=== PATIENT | female | born 1965 | race Hispanic/Latino ===

== ENCOUNTER 2022-03-14 20:30 | Inpatient (IN) | payer OTHER ==
[2022-03-14] MEDS ORDERED: NA CHLORIDE 0.9% 2,000 ML ONE (21:26)
[2022-03-14 21:32] LABS: Absolute Lymphocytes (CBC) 0.7 K/uL (0.7-4.9); Hematocrit 42.1 % (36.0-45.0); Lymphocytes % 4.7 % (15.3-44.8); MPV 8.5 fL (7.6-11.3); RBC Red Blood Cell Count 4.99 M/uL (3.86-4.86)
[2022-03-14 21:35] LABS: Protime INR 1.22
[2022-03-14 21:52] LABS: Albumin 4.1 g/dL (3.4-5.0); Magnesium 1.9 mg/dL (1.8-2.4); Potassium 3.1 mmol/L (3.5-5.1)
[2022-03-14 21:55] LABS: Urine Amorphous Sediment 1+ /HPF (NONE SEEN); Urine Bacteria 20-50 /HPF (<20); Urine Mucus 2+ /HPF (NONE SEEN); Urine RBC <5 /HPF (NONE SEEN)
[2022-03-14 22:00] LABS: Bilirubin Direct 0.3 mg/dL (0-0.2); Bilirubin Total 0.9 mg/dL (0.2-1.0); Protein, Total 6.9 g/dL (6.4-8.2); Troponin High Sensitivity 6.3 pg/mL (<58.9)
[2022-03-14 22:06] LABS: SARS-COV-2 RT PCR NEGATIVE (NEGATIVE)
--- NOTE | 2022-03-14 22:17 | RAD REPORT ---
EXAM DESCRIPTION: Kristopher Single View03/14/2022 10:10 pm CLINICAL HISTORY: Chest pain COMPARISON: none FINDINGS: The lungs appear clear of acute infiltrate. The heart is normal size IMPRESSION: No acute abnormalities displayed
[2022-03-14] MEDS ORDERED: NA CHLORIDE 0.9% 50 ML ONE (22:56)
[2022-03-14] MEDS ORDERED: KCL 20 MEQ/100 mL IVPB 100 ML IV ONE (22:56)
[2022-03-14] MEDS ORDERED: CEFTRIAXONE 1000 MG/VIAL ONE (22:56)
[2022-03-14] MEDS ORDERED: ACETAMINOPHEN 500 MG TAB ONE (22:56)
--- NOTE | 2022-03-15 01:12 | EDPHYS ---
Physician Documentation [facility] Name: Radha Welch Age: 56 yrs Sex: Female : 1965 Arrival Date: 03/14/2022 Time: 20:34 Bed 8 Private MD: ED Physician Dillon Purdy HPI: 03/14 21:10 This 56 yrs old Female presents to ER via Wheelchair with complaints of Fever, cp Nausea/Vomiting, Dizziness. 21:10 The patient reports fever, with an emergency department temperature of 100.9 degrees cp Fahrenheit. Onset: The symptoms/episode began/occurred today. 21:10 Associated signs and symptoms: Pertinent positives: abdominal pain, chest pain, cp headache, nausea, vomiting, dizziness, Pertinent negatives: altered mental status, cough, diarrhea. 21:10 Severity of symptoms: in the emergency department the symptoms are unchanged despite cp home interventions. 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 - Social history:: Smoking status: Patient denies any tobacco usage or history of. ROS: 21:15 Constitutional: Positive for fever. cp 21:15 Eyes: Negative for injury, pain, redness, and discharge. cp 21:15 ENT: Negative for drainage from ear(s), ear pain, sore throat, difficulty swallowing, difficulty handling secretions. 21:15 Cardiovascular: Positive for chest pain. 21:15 Respiratory: Negative for cough, shortness of breath, wheezing. 21:15 Abdomen/GI: Positive for nausea and vomiting, Negative for diarrhea, constipation, hematemesis. 21:15 Skin: Negative for rash. 21:15 Neuro: Positive for dizziness, headache, Negative for altered mental status, weakness. 21:15 All other systems are negative. Exam: 21:20 Constitutional: The patient appears in no acute distress, alert, awake, cp non-diaphoretic, non-toxic, well developed, well nourished, febrile, uncomfortable. 21:20 Head/Face: Normocephalic, atraumatic. cp 21:20 Eyes: Periorbital structures: appear normal, Conjunctiva: normal, no exudate, no injection, Sclera: no appreciated abnormality, Lids and lashes: appear normal, bilaterally. 21:20 ENT: External ear(s): are unremarkable, Nose: is normal, Mouth: Lips: moist, Oral mucosa: pink and intact, moist, Posterior pharynx: Airway: no evidence of obstruction, patent. 21:20 Neck: ROM/movement: is normal, is supple, without pain, no range of motions limitations, no meningismus. 21:20 Chest/axilla: Inspection: normal, Palpation: is normal, no crepitus, no tenderness. 21:20 Cardiovascular: Rate: tachycardic, Rhythm: regular, Edema: is not appreciated, JVD: is not appreciated. 21:20 Respiratory: the patient does not display signs of respiratory distress, Respirations: normal, no use of accessory muscles, no retractions, labored breathing, is not present, Breath sounds: are clear throughout, no decreased breath sounds, no stridor, no wheezing. 21:20 Abdomen/GI: Inspection: abdomen appears normal, Bowel sounds: active, all quadrants, Palpation: soft, in all quadrants, mild abdominal tenderness, in the right upper quadrant and left upper quadrant, rebound tenderness, is not appreciated, involuntary guarding, is not appreciated. 21:20 Back: CVA tenderness, is absent. 21:20 Skin: cellulitis, is not appreciated, no rash present. 21:20 Neuro: Orientation: to person, place \\T\\ time. Mentation: is normal, Motor: moves all fours, strength is normal, Sensation: is normal. 21:23 ECG was reviewed by the Attending Physician. cp Vital Signs: 21:00 BP 114 / 63; Pulse 110; Resp 20; Temp 100.9; Pulse Ox 97% on R/A; Weight 72.57 kg (R); tw5 Height 5 ft. 0 in. (152.40 cm); Pain 5/10; 21:07 BP 119 / 75; Pulse 114; Resp 12; Pulse Ox 100% ; tw5 22:50 BP 101 / 65; Pulse 108; Resp 16; Temp 103(O); Pulse Ox 100% on R/A; sm5 22:59 BP 101 / 65; Pulse 106; Resp 20; Pulse Ox 100% on R/A; tw5 03/15 00:17 BP 104 / 68; Pulse 98; Resp 22; Temp 101.8(O); Pulse Ox 96% on R/A; tw5 01:15 BP 118 / 98; Pulse 84; Resp 17; Pulse Ox 98% on R/A; sm5 02:04 BP 97 / 60; Pulse 81; Resp 18; Temp 98.5(O); Pulse Ox 99% on R/A; tw5 03:47 BP 97 / 60; tw5 03/14 21:00 Body Mass Index 31.25 (72.57 kg, 152.40 cm) tw5 MDM: 03/14 20:56 Patient medically screened. cp 03/15 00:00 Post IV fluid administration reassessment for Sepsis: Client prescribed 30 mL/kg IVF. cp Focused Assessment performed: March 15, 2022 at 00:00 Heart: Regular rate/rhythm noted. Tachycardia noted. Lungs: Noted to be clear bilaterally. Current vital signs reviewed: Yes. Neuro: no change Respiratory: no change. 00:50 Transition of care: After a detail discussion of the patient's case, care is cp transferred to Yoan Copeland MD. 01:09 Differential diagnosis: viral Infection, bacterial infection, UTI, gastroenteritis. mh7 Data reviewed: vital signs, nurses notes, lab test result(s), CBC, electrolytes, urinalysis, radiologic studies, CT scan. Data interpreted: Pulse oximetry: on room air is 96 %. Interpretation: normal. Counseling: I had a detailed discussion with the patient and/or guardian regarding: the historical points, exam findings, and any diagnostic results supporting the discharge/admit diagnosis, lab results, radiology results, the need for further work-up and treatment in the hospital. Response to treatment: the patient's symptoms have mildly improved after treatment. 03/14 21:09 Order name: Basic Metabolic Panel; Complete Time: 22:25 03/14 22:25 Interpretation: Normal except: K 3.1; GLUC 129; CRE 1.38; GFR 40. 03/14 21:09 Order name: CBC with Diff; Complete Time: 22:25 cp 03/14 22:25 Interpretation: Normal except: WBC 13.8; RBC 4.99; RDW 16.5; LINDA% 92.0; LYM% 4.7; MN% cp 3.1; NEUT A 12.7. 05/ 21:09 Order name: LFT's; Complete Time: 22:25 cp 05/06 22:25 Interpretation: Normal except: ALK 144; BILID 0.3. cp 05/06 21:09 Order name: Magnesium; Complete Time: 22:25 cp 05/06 21:09 Order name: NT PRO-BNP; Complete Time: 22:25 cp 05/06 21:09 Order name: PT-INR; Complete Time: 22:25 cp 05/06 21:09 Order name: Troponin HS; Complete Time: 22:25 cp 05/06 21:09 Order name: Blood Culture Adult (2) cp 05/06 21:09 Order name: Urine Microscopic Only; Complete Time: 22:25 cp 05/06 22:26 Interpretation: Normal except: UWBC 5-10; UBACT 20-50; SQEPI 10-20. cp 05/06 21:09 Order name: Lactate; Complete Time: 22:25 cp 05/06 22:26 Interpretation: Abnormal: LAC 2.5. cp 05/06 21:09 Order name: Procalcitonin; Complete Time: 23:08 cp 05/06 23:08 Interpretation: Reviewed. cp 05/ 21:11 Order name: COVID-19/FLU A+B (Document "Date of Onset" if Symptomatic); Complete Time: cp 22:25 /06 21:58 Order name: Urine Culture EDGA / 23:46 Order name: Lactate: 2 hr repeat; Complete Time: 00:50 cp 05/06 21:09 Order name: XRAY Chest (1 view); Complete Time: 22:25 cp 05/06 21:09 Order name: EKG; Complete Time: 21:10 cp 05/06 21:09 Order name: Cardiac monitoring; Complete Time: 21:25 cp 05/06 21:09 Order name: EKG - Nurse/Tech; Complete Time: 21:25 cp 05/06 21:09 Order name: IV Saline Lock; Complete Time: 21:25 cp 05/06 21:09 Order name: Labs collected and sent; Complete Time: 21:24 cp 05/ 22:28 Order name: CT Head Brain wo Cont cp / 22:28 Order name: CT Abd/Pelvis - IV Contrast Only cp 05/ 11:33 Order name: Gram Stain--Aerobic Bottle EDMS 03/14 21:09 Order name: O2 Per Protocol; Complete Time: 21:24 cp 03/14 21:09 Order name: O2 Sat Monitoring; Complete Time: 21:24 cp EC/06 21:23 Rate is 107 beats/min. Rhythm is regular. DC interval is normal. QRS interval is cp normal. QT interval is normal. T waves are Inverted in lead aVL. Interpreted by me. Reviewed by me. Administered Medications: 21:25 Drug: NS 0.9% (30 ml/kg) 30 ml/kg Route: IV; Rate: bolus; Site: right antecubital; tw5 03/15 03:47 Follow up: BP 97 / 60; Response: No adverse reaction; IV Status: Completed infusion; IV tw5 Intake: 2100ml 03/14 22:58 Drug: Tylenol 1000 mg Route: PO; tw5 03/15 00:19 Follow up: Response: No adverse reaction; Temperature is increased tw5 03/14 22:59 Drug: Rocephin - (cefTRIAXone) 1 grams Route: IVPB; Infused Over: 30 mins; Site: right tw5 antecubital; 03/15 00:19 Follow up: Response: No adverse reaction; IV Status: Completed infusion; IV Intake: [id number] 00:19 Drug: Potassium Chloride 20 mEq Route: IV; Rate: calculated rate; Site: right tw5 antecubital; 01:42 Follow up: Response: No adverse reaction; IV Status: Completed infusion; IV Intake: tw5 100ml 01:47 Drug: Flagyl (metroNIDAZOLE) 500 mg Volume: 100 ml; Route: IVPB; Rate: 200 ml/hr; tw5 Infused Over: 30 mins; Site: right antecubital; 03:45 Follow up: Response: No adverse reaction; IV Status: Completed infusion; IV Intake: tw5 100ml 03:46 Drug: Cipro (ciprofloxacin) 400 mg Volume: 200 ml; Route: IVPB; Infused Over: 60 mins; tw5 Site: right antecubital; 04:12 Drug: NS 0.9% 1000 ml Route: IV; Rate: 1 bolus; Site: right antecubital; tw5 Disposition Summary: 03/15/22 01:11 Hospitalization Ordered Hospitalization Status: Inpatient Admission [facility] Provider: Dakotah Troncoso7 Condition: Stable mh7 Problem: new mh7 Symptoms: have improved mh7 Bed/Room Type: Standard [facility] Location: Telemetry/MedSurg (Inpatient)(03/15/22 12:39) dw Room Assignment: 225(03/15/22 12:39) dw Diagnosis - Sepsis, unspecified organism mh7 - Colitis mh7 Forms: - Medication Reconciliation Form mh7 - SBAR form mh7 Addendum: 03/23/2022 19:16 Co-signature as Attending Physician, Yoan Copeland MD. [facility] Signatures: Dispatcher [employer] EDMS Adele Dickerson RN RN mw Woody, Diana RN RN dw Haja Magallanes, CARE MANAGER CNA-C CARE MANAGER CNA-Cla1 Dillon Correa PA PA cp Holmes, Maurice, MD MD [facility] Madison Esteban [facility] Corrections: (The following items were deleted from the chart) 03/14 21:22 21:09 Urine Test ordered. cp tw5 21:23 21:09 Urine Dipstick-Ancillary ordered. cp tw5 03/15 01:19 01:11 Telemetry/MedSurg (Inpatient) 7 mw 01:19 01:11 mh7 mw 12:39 01:19 [facility] ER HOLD mw dw 12:39 01:19 ERHOLD- mw dw
--- NOTE | 2022-03-15 01:12 | ER ---
Nurse's Notes [facility] Name: Radha Welch Age: 56 yrs Sex: Female : 1965 Arrival Date: 03/14/2022 Time: 20:34 Bed 8 Private MD: Diagnosis: Sepsis, unspecified organism;Colitis Presentation: 03/14 20:59 Chief complaint: Granddaughter reports " She started feeling dizzy, really hot and the tw5 she started throwing up.". Chief complaint: Patient states: She is reporting weakness, and she believes that she had a fever at home. Onset of symptoms was March 14, 2022 at 18:00. 21:00 Coronavirus screen: Vaccine status: Patient reports receiving the 2nd dose of the covid tw5 vaccine. [employer]. Ebola Screen: Patient negative for fever greater than or equal to 101.5 degrees Fahrenheit, and additional compatible Ebola Virus Disease symptoms Patient denies exposure to infectious person. Patient denies travel to an Ebola-affected area in the 21 days before illness onset. Initial Sepsis Screen: Does the patient meet any 2 criteria? Temp <36.0*C (96.8*F)) or > 38.3*C (100.9*F). HR > 90 bpm. Does the patient have a suspected source of infection? Yes: Acute abdominal pain If YES to both, name of provider notified: Dillon ABDULLAHI Risk Assessment: Do you want to hurt yourself or someone else? Patient reports no desire to harm self or others. 21:00 Method Of Arrival: Wheelchair tw5 21:00 Acuity: JOHN PAUL 2 tw5 Triage Assessment: 21:03 General: Appears uncomfortable, Behavior is calm, cooperative, appropriate for age. tw5 Pain: Complains of pain in face and abdomen Pain currently is 5 out of 10 on a pain scale. GI: Reports nausea, vomiting. 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 - Social history:: Smoking status: Patient denies any tobacco usage or history of. Screenin:07 Abuse screen: Denies threats or abuse. Denies injuries from another. Nutritional tw5 screening: No deficits noted. Tuberculosis screening: No symptoms or risk factors identified. Fall Risk No fall in past 12 months (0 pts). Assessment: 21:07 General: Appears in no apparent distress. Behavior is calm, cooperative, appropriate tw5 for age. Pain: Pain currently is 5 out of 10 on a pain scale. Cardiovascular: Rhythm is sinus tachycardia. Respiratory: No deficits noted. GI: Abdomen is obese. 22:59 Reassessment: Patient appears in no apparent distress at this time. No changes from tw5 previously documented assessment. Patient and/or family updated on plan of care and expected duration. Pain level reassessed. Patient is alert, oriented x 3, equal unlabored respirations, skin warm/dry/pink. 03/15 00:17 Reassessment: Patient appears in no apparent distress at this time. No changes from tw5 previously documented assessment. Patient and/or family updated on plan of care and expected duration. Pain level reassessed. Vital Signs: 03/14 21:00 BP 114 / 63; Pulse 110; Resp 20; Temp 100.9; Pulse Ox 97% on R/A; Weight 72.57 kg (R); tw5 Height 5 ft. 0 in. (152.40 cm); Pain 5/10; 21:07 BP 119 / 75; Pulse 114; Resp 12; Pulse Ox 100% ; tw5 22:50 BP 101 / 65; Pulse 108; Resp 16; Temp 103(O); Pulse Ox 100% on R/A; sm5 22:59 BP 101 / 65; Pulse 106; Resp 20; Pulse Ox 100% on R/A; tw5 0507 00:17 BP 104 / 68; Pulse 98; Resp 22; Temp 101.8(O); Pulse Ox 96% on R/A; tw5 01:15 BP 118 / 98; Pulse 84; Resp 17; Pulse Ox 98% on R/A; sm5 02:04 BP 97 / 60; Pulse 81; Resp 18; Temp 98.5(O); Pulse Ox 99% on R/A; tw5 03:47 BP 97 / 60; tw5 03/14 21:00 Body Mass Index 31.25 (72.57 kg, 152.40 cm) tw5 ED Course: 03/14 20:34 Patient arrived in ED. ja2 20:42 Dillon Correa PA is PHCP. cp 20:42 Yoan Copeland MD is Attending Physician. cp 20:52 Madison Esteban is Primary Nurse. tw5 21:02 Triage completed. tw5 21:03 Arm band placed on left wrist. tw5 21:07 Patient has correct armband on for positive identification. Placed in gown. Bed in low tw5 position. Call light in reach. Side rails up X 1. Adult w/ patient. laboratory monitor on. Pulse ox on. NIBP on. Door closed. Noise minimized. Lights dimmed. Moved to private room. Verbal reassurance given. 21:07 Inserted saline lock: 20 gauge in right antecubital area, using aseptic technique. tw5 Blood collected. 21:08 Initial lab(s) drawn, by ED staff, sent to lab. First set of blood cultures drawn by ED tw5 staff. 21:22 Procalcitonin Sent. tw5 21:22 Lactate Sent. tw5 21:23 Urine Microscopic Only Sent. tw5 21:24 Basic Metabolic Panel Sent. tw5 21:24 CBC with Diff Sent. tw5 21:24 NT PRO-BNP Sent. tw5 21:24 Magnesium Sent. tw5 21:24 LFT's Sent. tw5 21:24 PT-INR Sent. tw5 21:24 Troponin HS Sent. tw5 21:25 Blood Culture Adult (2) Sent. tw5 21:25 COVID-19/FLU A+B (Document "Date of Onset" if Symptomatic) Sent. tw5 21:25 Second set of blood cultures drawn by ED staff, EKG done, COVID swab sent to lab. Urine tw5 collected: straight cath specimen, clear, Amount Returned: 5mL. 22:12 XRAY Chest (1 view) In Process Unspecified. EDMS 22:35 Urine Culture Sent. tw5 22:35 Procalcitonin Sent. tw5 23:54 CT Head Brain wo Cont In Process Unspecified. EDMS 23:54 CT Abd/Pelvis - IV Contrast Only In Process Unspecified. EDMS 03/15 01:10 Dakotah Troncoso MD is Hospitalizing Provider. [facility] 07:47 Attending Physician role handed off by Yoan Copeland MD [facility] 07:47 Dillon Purdy MD is Attending Physician. ambar 13:39 No provider procedures requiring assistance completed. oro 13:41 Patient admitted, IV remains in place. oro Administered Medications: 03/14 21:25 Drug: NS 0.9% (30 ml/kg) 30 ml/kg Route: IV; Rate: bolus; Site: right antecubital; tw5 03/15 03:47 Follow up: BP 97 / 60; Response: No adverse reaction; IV Status: Completed infusion; IV tw5 Intake: 2100ml 03/14 22:58 Drug: Tylenol 1000 mg Route: PO; tw5 03/15 00:19 Follow up: Response: No adverse reaction; Temperature is increased tw5 03/14 22:59 Drug: Rocephin - (cefTRIAXone) 1 grams Route: IVPB; Infused Over: 30 mins; Site: right tw5 antecubital; 03/15 00:19 Follow up: Response: No adverse reaction; IV Status: Completed infusion; IV Intake: [id number] 00:19 Drug: Potassium Chloride 20 mEq Route: IV; Rate: calculated rate; Site: right tw5 antecubital; 01:42 Follow up: Response: No adverse reaction; IV Status: Completed infusion; IV Intake: tw5 100ml 01:47 Drug: Flagyl (metroNIDAZOLE) 500 mg Volume: 100 ml; Route: IVPB; Rate: 200 ml/hr; tw5 Infused Over: 30 mins; Site: right antecubital; 03:45 Follow up: Response: No adverse reaction; IV Status: Completed infusion; IV Intake: tw5 100ml 03:46 Drug: Cipro (ciprofloxacin) 400 mg Volume: 200 ml; Route: IVPB; Infused Over: 60 mins; tw5 Site: right antecubital; 04:12 Drug: NS 0.9% 1000 ml Route: IV; Rate: 1 bolus; Site: right antecubital; tw5 Intake: 00:19 IV: 50ml; Total: 50ml. tw5 01:42 IV: 100ml; Total: 150ml. tw5 03:45 IV: 100ml; Total: 250ml. tw5 03:47 IV: 2100ml; Total: 2350ml. tw5 Outcome: 01:11 Decision to Hospitalize by Provider. [facility] 13:39 Admitted to Med/surg accompanied by tech, via wheelchair, room 225. oro 13:39 Condition: good 13:39 Instructed on the need for admit. 13:41 Patient left the ED. oro Signatures: Dispatcher [employer] EDDillon Villareal MD MD cha Page, Corey, PA PA cp Holmes, Maurice, MD MD mh7 Naty Tao Tiffany tw5 Perlita Varma RN RN 5 Araseli Owens RN RN oro Corrections: (The following items were deleted from the chart) 05 21:03 21:00 BP 114 / 63; Pulse 110bpm; Resp 20bpm; Pulse Ox 97% RA; Temp 100.7F; 72.57 kg tw5 Reported; Height 5 ft. 0 in.; BMI: 31.2; Pain 5/10; tw5
[2022-03-15] MEDS ORDERED: METRONIDAZOLE 500mg IVPB 500 MG/100 ML BAG IV ONE ×2 (01:48→10:23)
[2022-03-15] MEDS ORDERED: CIPROFLOXACIN 400mg IV 400 MG/200 ML BAG IV ONE ×2 (01:48→10:23)
--- NOTE | 2022-03-15 02:00 | P.HP ---
Certification for Inpatient Patient admitted to: Inpatient With expected LOS: >2 Midnights Patient will require the following post-hospital care: None Practitioner: I am a practitioner with admitting privileges, knowledge of patient current condition, hospital course, and medical plan of care. Services: Services provided to patient in accordance with Admission requirements found in Title 42 Section 412.3 of the Code of Federal Regulations <Haja Magallanes Jae Valenzuela - Last Filed: 03/15/22 01:51> Patient History Date of Service: 03/15/22 Reason for admission: Sepsis, Colitits History of Present Illness: 56-year-old female patient with history of DVT presents to the ED for fever, N/V, abdominal pain for the last 1-2 days. ED eval significant for leukocytosis, hypokalemia, CT shows Sigmoid colitis. Pt meets sepsis criteria. Started on cipro/flagyl, will admit for further eval/mgmt. - Past Medical/Surgical History -: DVT on xarelto -: hysterectomy -: Thoracentesis? Psychosocial/ Personal History: Pt lives at home with and children - Family History Mother -: Hypertension Father -: Diabetes - Social History Smoking Status: Never smoker Alcohol use: No CD- Drugs: No Caffeine use: Yes Place of Residence: Home <Haja Magallanes - Last Filed: 03/15/22 01:51> Date of Service: 03/15/22 <Dakotah Troncoso - Last Filed: 03/16/22 22:29> Review of Systems 10-point ROS is otherwise unremarkable Gastrointestinal: Nausea, Vomiting, Abdominal Pain <Haja Magallanes - Last Filed: 03/15/22 01:51> Physical Examination - Physical Exam General: Alert, In no apparent distress, Oriented x3 HEENT: Atraumatic, PERRLA, Mucous membr. moist/pink, EOMI, Sclerae nonicteric Neck: Supple, 2+ carotid pulse no bruit, No LAD, Without JVD or thyroid abnormality Respiratory: Clear to auscultation bilaterally, Normal air movement Cardiovascular: Regular rate/rhythm, Normal S1 S2 Capillary refill: <2 Seconds Gastrointestinal: Normal bowel sounds, Tenderness (moderate LLQ/suprapubic tenderness) Musculoskeletal: No tenderness Integumentary: No rashes Neurological: Normal speech, Normal strength at 5/5 x4 extr, Normal tone, Normal affect - Studies Laboratory Data (last 24 hrs) 03/14/22 21:00: PT 13.5 H, INR 1.22 03/14/22 21:00: WBC 13.8 H, Hgb 13.9, Hct 42.1, Plt Count 205 03/14/22 21:00: Sodium 139, Potassium 3.1 L, BUN 13, Creatinine 1.38 H, Glucose 129 H, Magnesium 1.9, Total Bilirubin 0.9, AST 32, ALT 38, Alkaline Phosphatase 144 H <Haja Magallanes - Last Filed: 03/15/22 01:51> - Studies Microbiology Data (last 24 hrs): 03/14/22 21:15 Blood - Blood Blood Culture Gram Stain - Final <Dakotah Troncoso - Last Filed: 03/16/22 22:29> Assessment and Plan - Plan Assessment: Sepsis/Severe Sepsis secondary to sigmoid colitis NANCI likely related to severe sepsis HX Left DVT (2018) on chronic anticoagulation Hypokalemia Plan: Sepsis/Severe Sepsis secondary to sigmoid colitis: Continue cipro/flagyl. Blood cultures obtained will need to follow. Lactate decreased after IVF, mild NANCI vs CKD noted. meets sepsis criteria, severe sepsis with NANCI. NANCI likely related to severe sepsis: Continue IVF, lactate normalized, BP stable. Monitor labs daily, consult nephrology as necessary. HX Left DVT (2018) on chronic anticoagulation: Continue xarelto Hypokalemia: protocol in place, replaced in ER. DVT PPX:Continue xarelto Code status:Full code Discharge Plan: Home Plan to discharge in: 72 Hours - Advance Directives Does patient have a Living Will: No Does patient have a Durable POA for Healthcare: No - Code Status/Comfort Care Code Status Assessed: Yes (Full code) Critical Care: No Time Spent Managing Pts Care (In Minutes): 55 <Haja Magallanes - Last Filed: 03/15/22 01:51> Date of Service: 03/15/22 Subjective: HPI as mentioned above Physical Examination: Vitals: Afebrile vital signs are stable Physical exam: Cardiovascular: Within normal limits. Lungs: Within normal limits Abdomen: Within normal limits Neuro: Awake, alert, oriented to person place and time Assessment: 1. Colitis Plan: 1. Continue with current plan of care as mentioned above <Dakotah Troncoso - Last Filed: 03/16/22 22:29>
[2022-03-15] MEDS ORDERED: NA CHLORIDE 0.9% 1,000 ML ONE (04:15)
[2022-03-15] MEDS: NA CHLORIDE 0.9% 1,000 ML IV SCH ×3 (04:16→20:16)
[2022-03-15] MEDS ORDERED: ONDANSETRON 4 MG/2 ML VIAL IV PRN (04:16)
[2022-03-15] MEDS ORDERED: MORPHINE 2 MG/ML SYR IV PRN (04:16)
[2022-03-15 04:43] VITALS: BMI 31.2
[2022-03-15] MEDS: METRONIDAZOLE 500mg IVPB 500 MG/100 ML BAG IV SCH ×2 (09:00→16:18)
--- NOTE | 2022-03-15 09:23 | EKG ---
Test Date: 2022-03-14 Test Time: 21:23:39 Sql Programmer Analyst: MARINO MEASUREMENT RESULTS: Intervals: Rate: 107 PA: 150 QRSD: 84 QT: 322 QTc: 429 [place]: P: 80 PA: 150 QRS: -58 T: 54 INTERPRETIVE STATEMENTS: Sinus tachycardia Low voltage QRS Left anterior fascicular block Cannot rule out Anterior infarct, age undetermined Abnormal ECG No previous ECG available for comparison Electronically Signed On 03-15-22 09:22:12 CDT by Ramiro Vásquez
[2022-03-15] MEDS: CIPROFLOXACIN 400mg IV 400 MG/200 ML BAG IV SCH ×2 (10:36→20:52)
[2022-03-15] MEDS ORDERED: POTASSIUM CL SA 10 MEQ TAB PO ONE (13:39)
[2022-03-15 14:33] VITALS: O2SAT 99
[2022-03-15] MEDS ORDERED: ACETAMIN/CAFFEINE/BUTALB TAB PO PRN (14:35)
[2022-03-15] MEDS ORDERED: RIVAROXABAN 10 MG TABLET PO SCH (17:00)
[2022-03-16] MEDS: METRONIDAZOLE 500mg IVPB 500 MG/100 ML BAG IV SCH ×2 (00:21→08:23)
[2022-03-16] MEDS: NA CHLORIDE 0.9% 1,000 ML IV SCH ×2 (00:23→11:40)
[2022-03-16 05:59] LABS: Absolute Lymphocytes (CBC) 1.2 K/uL (0.7-4.9); Lymphocytes % 17.4 % (15.3-44.8); MPV 8.8 fL (7.6-11.3); RBC Red Blood Cell Count 3.89 M/uL (3.86-4.86)
[2022-03-16 06:05] LABS: Albumin 2.9 g/dL (3.4-5.0); Bilirubin Total 0.5 mg/dL (0.2-1.0); Protein, Total 5.2 g/dL (6.4-8.2)
[2022-03-16] MEDS: CIPROFLOXACIN 400mg IV 400 MG/200 ML BAG IV SCH (08:22)
[2022-03-16 12:46] VITALS: BP 144/68; TEMP 96.8
--- NOTE | 2022-03-16 22:30 | P.DS ---
Discharge Date: 03/16/22 Disposition: ROUTINE DISCHARGE Discharge Condition: GOOD Reason for Admission: Sepsis, Colitits Brief History of Present Illness: Patient is a 56-year-old female patient with history of DVT presents to the ED for fever, N/V, abdominal pain for the last 1-2 days. ED eval significant for leukocytosis, hypokalemia, CT shows Sigmoid colitis. Pt meets sepsis criteria. Started on cipro/flagyl, will admit for further eval/mgmt. Hospital Course: Patient is clinically is doing well. Patient will continue on antibiotics. Patient will have outpatient colonoscopy. At this time, patient stable for discharge home. Vital Signs/Physical Exam: Temp Pulse Resp BP Pulse Ox 96.8 F 61 16 144/68 H 100 03/16/22 12:00 03/16/22 12:00 03/16/22 12:00 03/16/22 12:00 03/16/22 12:00 General: Alert, In no apparent distress, Oriented x3 Cardiovascular: Regular rate/rhythm, Normal S1 S2 Gastrointestinal: Normal bowel sounds, Soft and benign, Non-distended Laboratory Data at Discharge: WBC 7.1 K/uL (4.3-10.9) D 03/16/22 05:23 Hgb 11.0 g/dL (12.0-15.0) L D 03/16/22 05:23 Hct 33.0 % (36.0-45.0) L D 03/16/22 05:23 Plt Count 151 K/uL (152-406) L D 03/16/22 05:23 PT 13.5 SECONDS (9.5-12.5) H 03/14/22 21:00 INR 1.22 03/14/22 21:00 Sodium 142 mmol/L (136-145) 03/16/22 05:23 Potassium 4.0 mmol/L (3.5-5.1) 03/16/22 05:23 BUN 10 mg/dL (7-18) 03/16/22 05:23 Creatinine 0.87 mg/dL (0.55-1.3) 03/16/22 05:23 Glucose 90 mg/dL (74-106) 03/16/22 05:23 Magnesium 1.9 mg/dL (1.8-2.4) 03/14/22 21:00 Total Bilirubin 0.5 mg/dL (0.2-1.0) 03/16/22 05:23 AST 12 U/L (15-37) L 03/16/22 05:23 ALT 21 U/L (12-78) 03/16/22 05:23 Alkaline Phosphatase 89 U/L (45-117) 03/16/22 05:23 Home Medications: Rivaroxaban [Xarelto*] 20 mg PO DAILY AT SUPPER #30 tablet 03/16/22 levoFLOXacin [Levaquin] 500 mg PO DAILY #7 tab 03/16/22 metroNIDAZOLE [Flagyl] 500 mg PO Q8H #20 tablet 03/16/22 New Medications: metroNIDAZOLE [Flagyl] 500 mg PO Q8H #20 tablet levoFLOXacin [Levaquin] 500 mg PO DAILY #7 tab Rivaroxaban [Xarelto*] 20 mg PO DAILY AT SUPPER #30 tablet Physician Discharge Instructions: -DC IV and DC home -Follow-up with PCP in 1 to 2 weeks -Follow-up with gastroenterology in 1 to 2 weeks -Please call Dr. Troncoso at [phone] if any questions regarding hospital stay -Please call nursing station at [phone] if any nursing or medication questions -Return to the emergency room if symptoms worsen Diet: AHA Activity: Fall precautions Followup: NONE,NONE [Primary Care Provider] - Time spent managing pt's care (in minutes): 35
--- NOTE | 2022-03-17 14:29 | RAD REPORT ---
EXAM DESCRIPTION: CT - Head Brain Wo Cont - 03/15/2022 6:51 am CLINICAL HISTORY: Dizziness, non-specific. TECHNIQUE: Noncontrast CT through the head was performed. Axial, coronal, and sagittal reconstructio ns were created and sent to PACS. This exam was performed according to our departmental dose-optimiza tion program which includes use of Automated Exposure Control, adjustment of the mA and/or kV accordi ng to patient size and/or use of iterative reconstruction technique. COMPARISON: None. FINDINGS: There is diffuse age-appropriate atrophy throughout the brain parenchyma. Mild periventric ular white matter changes are present, and there is mild ex vacuo dilatation of the ventricular syste m. There is no intra-axial or extra-axial bleed. There is no mass or mass effect. Mild to moderate mucosal thickening in the ethmoid air cells, maxillary sinuses, and sphenoid sinuses . Near complete opacification of the left frontal sinus. Possible partial opacification of some masto id air cells bilaterally. IMPRESSION: 1. No acute intracranial abnormality identified. 2. Paranasal sinus disease. Possible partial opacification of the mastoid air cells. Electronically signed by: Roxie Weinberg MD 03/15/2022 12:53 AM CDT Due to temporary technical issues with the PACS/Fluency reporting system, reports are being signed by the in house radiologist without review as a courtesy to ensure prompt reporting. The interpreting r adiologist is fully responsible for the content of the report.
--- NOTE | 2022-03-17 14:31 | RAD REPORT ---
EXAM DESCRIPTION: CT - Abdomen Pelvis W Contrast - 03/15/2022 6:50 am CLINICAL HISTORY: Nausea/vomiting. COMPARISON: None. TECHNIQUE: CT of the abdomen and pelvis was performed following intravenous administration of iodina jose contrast. Arterial phase images of the abdomen, and portal venous phase images through the abdome n and pelvis were obtained. Oral contrast was not administered. Axial, coronal, and sagittal soft tis carlos window reconstructions were created and sent to PACS. This exam was performed according to our departmental dose-optimization program, which includes autom ated exposure control, adjustment of the mA and/or kV according to patient size and/or use of iterati ve reconstruction technique. FINDINGS: Thoracic: No significant abnormality. Hepatobiliary: Hepatomegaly, measuring 19.4 cm in length. No concerning hepatic lesion identified. Th e portal veins are patent. Few small calcified gallstones in the gallbladder. No gallbladder wall thi ckening or surrounding inflammatory changes. No biliary ductal dilatation. Pancreas: Unremarkable. Spleen: Unremarkable. Gastrointestinal: No evidence of bowel obstruction. The appendix is normal. Small to moderate amount of fecal material throughout the colon. Possible mild wall thickening in the sigmoid colon. Adrenals: No abnormality identified in either adrenal gland. Renal: Few small bilateral renal hypodensities, too small to accurately characterize but statisticall y likely cysts. No concerning parenchymal abnormality in either kidney. No hydronephrosis or urolithi asis. Bladder/Reproductive: Unremarkable appearance of the urinary bladder by CT technique. Vascular/Lymphatics: Mild retroperitoneal lymphadenopathy. Left common iliac/external iliac venous st ents, with possible region of nonenhancement in the midportion. The left common femoral vein is paten t. Abdominal aorta is normal in caliber. Musculoskeletal: No concerning osseous lesion identified. Fluid / peritoneum: Trace pelvic free fluid. No free intraperitoneal air identified. IMPRESSION 1. Suspected mild wall thickening in the sigmoid colon. Correlate for potential colitis . 2. Trace pelvic free fluid. 3. Cholelithiasis. 4. Left common to external iliac venous dense with possible region of nonenhancement in the midport ion, indeterminate chronicity. Electronically signed by: Roxie Weinberg MD 03/15/2022 1:02 AM CDT Due to temporary technical issues with the PACS/Fluency reporting system, reports are being signed by the in house radiologist without review as a courtesy to ensure prompt reporting. The interpreting r adiologist is fully responsible for the content of the report.
== END 2022-03-16 12:30 | disposition home or self-care (01) | DRG 872 ==
LOC: ER 20:30 → ERHOLD 03-15 01:59 → 2ND 03-15 13:24
PROVIDERS: ADMIT Hospitalist; ATTEND Hospitalist
DX: A41.9 Sepsis, unspecified organism (principal); N17.9 Acute kidney failure, unspecified; K52.9 Noninfective gastroenteritis and colitis, unspecified; R65.20 Severe sepsis without septic shock; E87.6 Hypokalemia; Z86.718 Personal history of other venous thrombosis and embolism; Z79.01 Long term (current) use of anticoagulants; Z20.822 Contact with and (suspected) exposure to COVID-19
CPT/HCPCS: 0240U; 36415; 70450; 71045; 74177; 80048; 80053; 80076; 81015; 83605; 83735; 83880; 84145; 84484; 85025; 85610; 87040; 87077; 87086; 87088; 87186; 87205; 93005; 96365; 96366; 96367; 96375; 99285; J0744; J2270; J2405; J3480; J3490; J7030; Q9967